=== PATIENT | male | born 1935 | race Two or more races ===

== ENCOUNTER 2023-05-31 09:11 | Outpatient (CLI) | payer OTHER | END 2023-05-31 09:12 | disposition home or self-care (01) | LOC: LAB 09:11 | DX: D64.9 Anemia, unspecified (principal); E78.5 Hyperlipidemia, unspecified; E79.0 Hyperuricemia without signs of inflammatory arthritis and tophaceous disease; R80.9 Proteinuria, unspecified ==

== ENCOUNTER 2024-10-02 09:49 | Inpatient (IN) | payer OTHER ==
[~2024-10-02] VITALS: Ht 167.6 cm; Wt 72.6 kg
[~2024-10-02 09:49] MED LIST: ADULT LOW DOSE81 M1; ARICEPT10 MG; CRESTOR20 MG; NAMENDA10 MG; NORVASC10 MG
--- NOTE | 2024-10-02 09:55 | NUR ---
SE RECIBE PTE ALERTA Y ORIENTADO EN LUGAR Y NOMBRE EN AMBULANCIA REFIERE HEMATURIA QUE DESCONOCE DESDE CUANDO. SE REALIZAN VITALES Y SE DOCUMENTAN EN SISTEMA.
[2024-10-02] MEDS ORDERED: CEFTRIAXONE SODIUM 1,000 MG VIAL IV ONE (10:15)
[2024-10-02] MEDS ORDERED: TAMSULOSIN HCL 0.4 MG CAP PO ONE (10:15)
--- NOTE | 2024-10-02 10:27 | NUR ---
[email or web address] ORIENTA A PTE SOBRE TX MEDICO ORDENAO POR . REALIZA WALT DE MUESTRAS DE LAB [facility] ORDEN MEDICA Y BAJO MEDIDAS ASEPTICAS. VENOPUNCION PATENTE BAJANDO IV FLUIDS POR REGULADOR. SE NOTIFICAN ESTUDIOS ORDENADOS.
[2024-10-02 10:33] LABS: URINE APPEARANCE Turbid; URINE BACTERIA 1261.3 uL (0.0-1933); URINE BILIRRUBIN Large (NEGATIVE); URINE BLOOD Small; URINE COLOR Red; URINE EPITHELIAL CELLS 66.9 uL (0.0-38.8); URINE KETONE 15 (NEGATIVE); URINE LEUKOCYTE Large; URINE NITRATE Positive; URINE UROBILINOGEN 0.2 E.U./dl; URINE WBC 342.7 uL (0.0-23.2)
[2024-10-02 10:42] LABS: HEMATOCRIT 46.9 % (39.0-48.0); MEAN CELL VOLUME 91.2 fL (80.0-100.00); MEAN CORPUSCULAR HEMOGLOBIN 31.1 pg (27.00-32.0); MEAN CORPUSCULAR HGB CONC 34.1 g/dl (32.0-36.0); PLATELET COUNT 279 K/uL (150-450); RED BLOOD COUNT 5.14 M/uL (4.00-6.00); RED CELL DISTRIBUTION WIDTH 15.5 % (11.5-14.5)
[2024-10-02 11:14] LABS: PH,URINE 6.5 (5.0-8.0); URINE GLUCOSE 500 MG/DL (NEGATIVE); URINE PROTEIN 100 (NEGATIVE); URINE RBC > 10558.9 uL (0.0-20.8)
[2024-10-02 11:39] LABS: INR 1.09; PARTIAL THROMBOPLASTIN TIME 29.3 SECONDS (22.0-34.0); PROTHROMBIN TIME 11.8 SECONDS (9.0-11.5)
[2024-10-02 11:49] LABS: ALBUMIN 3.5 gm/dL (3.4-5.0); BILIRUBIN TOTAL 1.01 mg/dL (0.3-1.2); CALCIUM 9.1 mg/dL (8.5-10.1); CREATININE SERUM 1.83 mg/dL (0.70-1.30); GFR 35.27; POTASSIUM 4.71 mEq/L (3.5-5.1); TOTAL PROTEIN 7.5 gm/dL (6.4-8.2)
--- NOTE | 2024-10-02 15:31 | NUR ---
SE RECIBE PACIENTE DE TURNO ANTERIOR ALERTA Y ORIENTADO EN LORETA LUDA ESFERAS, UBICADO EN RANDY A NIVEL MAS BAJO Y CON BARANDAS ELEVADAS. SE OBSERVA CON BUEN PATRON RESPIRATORIO Y PIEL TIBIA AL TACTO. CANALIZACION PATENTE,YOU DE EDEMA O ERITEMA. PENDIENTE LECTURA DE CT.
[2024-10-02 16:57] LABS: HEMATOCRIT 47.3 % (39.0-48.0); HEMOGLOBIN 15.7 g/dL (13-16.00); MEAN CELL VOLUME 92.5 fL (80.0-100.00); MEAN CORPUSCULAR HEMOGLOBIN 30.6 pg (27.00-32.0); MEAN CORPUSCULAR HGB CONC 33.1 g/dl (32.0-36.0); PLATELET COUNT 277 K/uL (150-450); RED BLOOD COUNT 5.12 M/uL (4.00-6.00); RED CELL DISTRIBUTION WIDTH 15.4 % (11.5-14.5)
[2024-10-02] MEDS ORDERED: DEXTROSE 50 % IN WATER 0.5 G/ML DISP.SYRIN IV PRN (19:30)
[2024-10-02] MEDS ORDERED: 0.9 % SODIUM CHLORIDE 1,000 ML IV SCH (19:30)
[2024-10-02] MEDS ORDERED: INSULIN LISPRO 1,000 UNIT/10 ML UNITS SUBCUTANEO PRN (19:30)
[2024-10-02] MEDS ORDERED: CEFTRIAXONE SODIUM 1,000 MG VIAL IV SCH (20:12)
[2024-10-02] MEDS ORDERED: ONDANSETRON HCL 4 MG in DEXTROSE 5 % IN WATER 50 ML IV PRN (20:15)
[2024-10-02] MEDS ORDERED: ACETAMINOPHEN 500 MG GEL..CAP PO PRN (20:15)
[2024-10-02] MEDS ORDERED: ENALAPRILAT DIHYDRATE 1.25 MG/ML VIAL IV PRN (20:15)
[2024-10-02] MEDS ORDERED: MORPHINE SULFATE 2 MG/ML SYRINGE IV PRN (20:15)
[2024-10-02] MEDS ORDERED: GABAPENTIN 600 MG TABLET PO SCH (20:17)
[2024-10-02] MEDS ORDERED: FAMOTIDINE/PF 20 MG in 0.9 % SODIUM CHLORIDE 8 ML IV PUSH SCH (21:00)
[2024-10-02 22:59] VITALS: BP 152/88; O2SAT 97
[2024-10-03] VITALS: BP 128/65; O2SAT 96
[2024-10-03 08:22] VITALS: BP 150/74; O2SAT 97
[2024-10-03 08:35] LABS: HEMATOCRIT 42.4 % (39.0-48.0); HEMOGLOBIN 14.5 g/dL (13-16.00); MEAN CELL VOLUME 90.5 fL (80.0-100.00); MEAN CORPUSCULAR HEMOGLOBIN 30.9 pg (27.00-32.0); MEAN CORPUSCULAR HGB CONC 34.1 g/dl (32.0-36.0); PLATELET COUNT 271 K/uL (150-450); RED BLOOD COUNT 4.69 M/uL (4.00-6.00)
[2024-10-03 08:39] LABS: INR 1.09; PARTIAL THROMBOPLASTIN TIME 29.4 SECONDS (22.0-34.0); PROTHROMBIN TIME 11.8 SECONDS (9.0-11.5)
[2024-10-03 08:47] LABS: ALBUMIN 3.3 gm/dL (3.4-5.0); BILIRUBIN TOTAL 0.94 mg/dL (0.3-1.2); BILIRUBIN,CONJUGATED 0.24 mg/dL (0.0-0.2); BILIRUBIN,UNCONJUGATED 0.7 mg/dL (0.0-0.6); CALCIUM 8.7 mg/dL (8.5-10.1); CHOL HDL RATIO 2.5 (0-5.0); CREATININE SERUM 1.48 mg/dL (0.70-1.30); GFR 45.07; GLOBULINA 3.1 G/DL (2.4-3.5); POTASSIUM 4.42 mEq/L (3.5-5.1); TOTAL PROTEIN 6.4 gm/dL (6.4-8.2)
[2024-10-03 08:48] LABS: C-REACTIVE PROTEIN 0.62 MG/DL (0.00-0.29)
[2024-10-03] MEDS ORDERED: AMLODIPINE BESYLATE 10 MG TABLET PO SCH (09:00)
[2024-10-03] MEDS ORDERED: PATIENTS OWN MEDICATION (MEDICAMENTO EN PISO) PO SCH (09:00)
[2024-10-03] MEDS ORDERED: MEMANTINE HCL 10 MG TABLET PO SCH (09:00)
[2024-10-03 09:11] LABS: ERYTHROCYTE SEDIMENTATION RATE 16 mm/hr
[2024-10-03 09:48] LABS: URINE APPEARANCE TURBID; URINE BILIRRUBIN NEGATIVE (NEGATIVE); URINE COLOR RED; URINE GLUCOSE >=100 MG/DL (NEGATIVE); URINE KETONE NEGATIVE (NEGATIVE)
[2024-10-03 09:49] LABS: PH,URINE 6.5; URINE BLOOD LARGE; URINE PROTEIN 300 (NEGATIVE)
[2024-10-03 09:50] LABS: URINE NITRATE POSITIVE; URINE RBC LOADED /HPF
[2024-10-03 09:51] LABS: URINE EPITHELIAL CELLS NONE SEEN /HPF; URINE WBC NONE SEEN /hpf
[2024-10-03 09:52] LABS: URINE LEUKOCYTE POSITIVE
[2024-10-03 09:55] LABS: URINE BACTERIA MANY
[2024-10-03 15:55] VITALS: BP 136/71; O2SAT 99
[2024-10-03] MEDS ORDERED: DONEPEZIL HCL 10 MG TABLET PO SCH (17:00)
[2024-10-04] VITALS: BP 150/79; O2SAT 96
[2024-10-04] MEDS ORDERED: SODIUM CHLORIDE 0.45 % 1,000 ML IV SCH (05:24)
[2024-10-04 07:23] LABS: HEMATOCRIT 40.2 % (39.0-48.0); HEMOGLOBIN 13.2 g/dL (13-16.00); MEAN CELL VOLUME 92.4 fL (80.0-100.00); MEAN CORPUSCULAR HEMOGLOBIN 30.4 pg (27.00-32.0); MEAN CORPUSCULAR HGB CONC 32.8 g/dl (32.0-36.0); PLATELET COUNT 266 K/uL (150-450); RED BLOOD COUNT 4.34 M/uL (4.00-6.00); RED CELL DISTRIBUTION WIDTH 15.6 % (11.5-14.5)
[2024-10-04 08:14] LABS: CALCIUM 8.8 mg/dL (8.5-10.1); CREATININE SERUM 1.63 mg/dL (0.70-1.30); GFR 40.31; POTASSIUM 4.67 mEq/L (3.5-5.1)
[2024-10-04 08:53] VITALS: BP 170/81; O2SAT 97
[2024-10-04] MEDS ORDERED: FINASTERIDE 5 MG TABLET PO SCH (09:00)
[2024-10-04 16:18] VITALS: BP 174/97; O2SAT 98
[2024-10-05 00:26] VITALS: BP 131/74; O2SAT 98
[2024-10-05 07:16] LABS: ALBUMIN 2.9 gm/dL (3.4-5.0); CALCIUM 8.4 mg/dL (8.5-10.1); CREATININE SERUM 1.59 mg/dL (0.70-1.30); GFR 41.49; PHOSPHOROUS 3.9 mg/dL (2.5-4.9); POTASSIUM 4.35 mEq/L (3.5-5.1)
[2024-10-05 08:00] VITALS: BP 153/89; O2SAT 98
[2024-10-05 16:00] VITALS: BP 145/71; O2SAT 99
[2024-10-06 01:16] VITALS: BP 138/85; O2SAT 97
[2024-10-06 10:04] VITALS: BP 119/77; O2SAT 97
[2024-10-06 16:00] VITALS: BP 120/77; O2SAT 95
[2024-10-07 01:59] VITALS: BP 155/88; O2SAT 97
[2024-10-07 09:06] VITALS: BP 163/93; O2SAT 96
[2024-10-07 16:09] VITALS: BP 129/81; O2SAT 96
[2024-10-08 00:13] VITALS: BP 132/83; O2SAT 95
[2024-10-08 06:47] LABS: HEMATOCRIT 36.3 % (39.0-48.0); HEMOGLOBIN 12.1 g/dL (13-16.00); MEAN CELL VOLUME 92.4 fL (80.0-100.00); MEAN CORPUSCULAR HEMOGLOBIN 30.8 pg (27.00-32.0); MEAN CORPUSCULAR HGB CONC 33.4 g/dl (32.0-36.0); PLATELET COUNT 255 K/uL (150-450); RED BLOOD COUNT 3.93 M/uL (4.00-6.00); RED CELL DISTRIBUTION WIDTH 15.3 % (11.5-14.5)
[2024-10-08 07:06] LABS: ALBUMIN 2.9 gm/dL (3.4-5.0); CALCIUM 8.4 mg/dL (8.5-10.1); CREATININE SERUM 1.41 mg/dL (0.70-1.30); GFR 47.66; PHOSPHOROUS 3.4 mg/dL (2.5-4.9); POTASSIUM 3.99 mEq/L (3.5-5.1)
[2024-10-08 08:30] VITALS: BP 160/85; O2SAT 97
[2024-10-08] MEDS ORDERED: GABAPENTIN 300 MG CAPSULE PO NR (13:00)
[2024-10-08 16:01] VITALS: BP 110/61; O2SAT 97
[2024-10-09] MEDS ORDERED: GABAPENTIN 300 MG CAPSULE PO SCH (09:00)
== END 2024-10-08 18:40 | DRG 683 ==
LOC: ER 09:49 → SURG 20:38
PROVIDERS: General Practice; Internal Medicine Nephrology; Urology; ADMIT Internal Medicine; ATTEND Internal Medicine
PROC: BW21YZZ Computerized Tomography (CT Scan) of Abdomen and Pelvis using Other Contrast (ICD-10-PCS; principal; 2024-10-02)
PROC: BW21YZZ Computerized Tomography (CT Scan) of Abdomen and Pelvis using Other Contrast (ICD-10-PCS; 2024-10-05)
DX: N17.9 Acute kidney failure, unspecified (principal); N39.0 Urinary tract infection, site not specified; R31.0 Gross hematuria; N40.0 Benign prostatic hyperplasia without lower urinary tract symptoms; I12.9 Hypertensive chronic kidney disease with stage 1 through stage 4 chronic kidney disease, or unspecified chronic kidney disease; N18.9 Chronic kidney disease, unspecified

== ENCOUNTER 2025-07-21 14:53 | Inpatient (IN) | payer OTHER ==
[~2025-07-21] VITALS: Ht 172.7 cm; Wt 95.3 kg
[2025-07-21] MEDS ORDERED: GABAPENTIN100 M2 PO (14:59)
[2025-07-21] MEDS ORDERED: DONEPEZIL HCL5 MG PO (14:59)
[2025-07-21] MEDS ORDERED: MEMANTINE HCL5 MG PO (14:59)
[2025-07-21] MEDS ORDERED: OPTIMAG 125125 MG PO (15:00)
[2025-07-21] MEDS ORDERED: AMLODIPINE-OLM1 EAC2 PO (15:00)
[2025-07-21 16:31] LABS: BASO % 0.4 % (0.1-1.2); EOS # 0.04 (0.04-0.54); EOS % 0.9 % (0.7-7.0); LYMPH # 0.77 (1.18-3.74); LYMPH % 16.7 % (19.3-53.1); MEAN PLATELET VOLUME 10.20 fl (9.4-12.4); MONO # 0.81 (0.24-0.82); NEUT # 2.93 (1.56-6.13); NEUT % 63.4 % (34.0-71.1); RED CELL DISTRIBUTION WIDTH 16.8 % (11.6-14.4)
[2025-07-21 16:36] LABS: MONO % 17.5 % (4.7-12.5)
[2025-07-21 16:55] LABS: INR 1.05
[2025-07-21 16:59] LABS: ALT/SGPT 68.0 U/L (12-78); AST/SGOT 40.0 U/L (15-37); BILIRUBIN TOTAL 0.65 mg/dL (0.3-1.2); BUN CREA RATIO 15.0 (7.0-25.0); CREATININE SERUM 2.03 mg/dL (0.70-1.30); GFR 31.22; GLOBULINA 3.9 G/DL (2.4-3.5); GLUCOSE FASTING 135.0 mg/dL (65-100); OSMOLALITY SERUM 286.0 MOSM/KG (275-295)
[2025-07-21 18:16] LABS: COVID-19 AG NEGATIVE (NEGATIVE)
[2025-07-21 19:53] LABS: URINE APPEARANCE Cloudy; URINE BILIRRUBIN Negative (NEGATIVE); URINE BLOOD Large; URINE COLOR Yellow; URINE KETONE Negative (NEGATIVE); URINE LEUKOCYTE Large; URINE NITRATE Negative; URINE UROBILINOGEN 0.2 E.U./dl
[2025-07-21 19:58] LABS: URINE BACTERIA 867.4 uL (0.0-1933); URINE EPITHELIAL CELLS 4.3 uL (0.0-38.8); URINE RBC 55.1 uL (0.0-20.8); URINE WBC 2024.2 uL (0.0-23.2)
[2025-07-21 20:05] LABS: URINE CAST 0.58 uL (0.0-1.40); URINE GLUCOSE >=1000 MG/DL (NEGATIVE); URINE PROTEIN 100 (NEGATIVE)
[2025-07-21] MEDS ORDERED: 0.9 % SODIUM CHLORIDE 1,000 ML IV SCH (21:30)
[2025-07-21] MEDS ORDERED: GABAPENTIN 100 MG CAPSULE PO SCH (21:34)
[2025-07-21] MEDS ORDERED: CEFTRIAXONE SODIUM 2,000 MG in 0.9 % SODIUM CHLORIDE 100 ML IV SCH (21:34)
[2025-07-21] MEDS ORDERED: ATORVASTATIN CALCIUM 40 MG TABLET PO SCH (21:40)
[2025-07-21] MEDS ORDERED: ACETAMINOPHEN 500 MG GEL..CAP PO PRN (21:45)
[2025-07-22 01:31] VITALS: BP 131/87; O2SAT 99
[2025-07-22 02:15] VITALS: BP 138/77; O2SAT 96
[2025-07-22] MEDS ORDERED: AMLODIPINE BESYLATE 5 MG TABLET PO SCH (09:00)
[2025-07-22] MEDS ORDERED: MEMANTINE HCL 10 MG TABLET PO SCH (09:00)
[2025-07-22] MEDS ORDERED: FAMOTIDINE/PF 20 MG in 0.9 % SODIUM CHLORIDE 8 ML IV PUSH SCH (09:00)
[2025-07-22 09:31] VITALS: BP 144/86; O2SAT 97
[2025-07-22] MEDS ORDERED: DONEPEZIL HCL 10 MG TABLET PO SCH (17:00)
[2025-07-22 17:14] VITALS: BP 124/76; O2SAT 97
[2025-07-23 01:19] VITALS: BP 113/61; O2SAT 94
[2025-07-23 07:19] LABS: BASO % 0.2 % (0.1-1.2); EOS # 0.02 (0.04-0.54); EOS % 0.4 % (0.7-7.0); LYMPH # 0.65 (1.18-3.74); LYMPH % 11.6 % (19.3-53.1); MEAN PLATELET VOLUME 10.90 fl (9.4-12.4); MONO # 0.98 (0.24-0.82); NEUT # 3.92 (1.56-6.13); NEUT % 69.9 % (34.0-71.1); RED CELL DISTRIBUTION WIDTH 16.6 % (11.6-14.4)
[2025-07-23 07:32] LABS: MONO % 17.5 % (4.7-12.5)
[2025-07-23 07:51] LABS: ALT/SGPT 60.0 U/L (12-78); AST/SGOT 36.0 U/L (15-37); BILIRUBIN TOTAL 0.67 mg/dL (0.3-1.2); BUN CREA RATIO 18.0 (7.0-25.0); CREATININE SERUM 1.75 mg/dL (0.70-1.30); GFR 37.05; GLOBULINA 3.8 G/DL (2.4-3.5); GLUCOSE FASTING 75.0 mg/dL (65-100); OSMOLALITY SERUM 290.0 MOSM/KG (275-295)
[2025-07-23 08:53] VITALS: BP 129/80
[2025-07-23 14:49] LABS: URINE APPEARANCE Cloudy; URINE BILIRRUBIN Negative (NEGATIVE); URINE BLOOD Large; URINE COLOR Yellow; URINE KETONE Negative (NEGATIVE); URINE LEUKOCYTE Moderate; URINE NITRATE Negative; URINE UROBILINOGEN 1.0 E.U./dl
[2025-07-23 14:52] LABS: URINE BACTERIA 315.5 uL (0.0-1933); URINE EPITHELIAL CELLS 3.0 uL (0.0-38.8); URINE RBC 1214.3 uL (0.0-20.8); URINE WBC 1704.5 uL (0.0-23.2)
[2025-07-23 15:22] LABS: URINE CAST 0.73 uL (0.0-1.40); URINE GLUCOSE >=1000 MG/DL (NEGATIVE); URINE PROTEIN 100 (NEGATIVE)
[2025-07-23 15:24] LABS: URINE YEAST FEW /hpf
[2025-07-23 17:45] VITALS: BP 151/89
[2025-07-24 01:01] VITALS: BP 135/89
[2025-07-24 09:08] VITALS: BP 149/91
[2025-07-24 17:42] VITALS: BP 152/91
[2025-07-25 00:54] VITALS: BP 144/82
[2025-07-25 06:41] LABS: ALT/SGPT 42.0 U/L (12-78); AST/SGOT 28.0 U/L (15-37); BILIRUBIN TOTAL 0.62 mg/dL (0.3-1.2); BUN CREA RATIO 15.0 (7.0-25.0); CREATININE SERUM 1.77 mg/dL (0.70-1.30); GFR 36.57; GLOBULINA 3.6 G/DL (2.4-3.5); GLUCOSE FASTING 82.0 mg/dL (65-100); OSMOLALITY SERUM 293.0 MOSM/KG (275-295)
[2025-07-25 09:26] VITALS: BP 171/71
[2025-07-25 17:42] VITALS: BP 154/87
[2025-07-25] MEDS ORDERED: ENALAPRILAT DIHYDRATE 1.25 MG/ML VIAL IV STA (21:16)
== END 2025-07-25 21:57 | disposition home or self-care (01) | DRG 690 ==
LOC: ER 14:53 → MEDI 21:54
PROVIDERS: Emergency Medicine; Internal Medicine Infectious Disease; Internal Medicine Nephrology; ADMIT Student in an Organized Health Care Education/Training Program; ATTEND Student in an Organized Health Care Education/Training Program
PROC: B246ZZZ Ultrasonography of Right and Left Heart (ICD-10-PCS; principal; 2025-07-21)
PROC: BR20ZZZ Computerized Tomography (CT Scan) of Cervical Spine (ICD-10-PCS; 2025-07-21)
PROC: B020ZZZ Computerized Tomography (CT Scan) of Brain (ICD-10-PCS; 2025-07-21)
PROC: B030ZZZ Magnetic Resonance Imaging (MRI) of Brain (ICD-10-PCS; 2025-07-21)
PROC: B345ZZZ Ultrasonography of Bilateral Common Carotid Arteries (ICD-10-PCS; 2025-07-21)
PROC: B348ZZZ Ultrasonography of Bilateral Internal Carotid Arteries (ICD-10-PCS; 2025-07-21)
DX: N39.0 Urinary tract infection, site not specified (principal); N17.9 Acute kidney failure, unspecified; G44.309 Post-traumatic headache, unspecified, not intractable; F07.81 Postconcussional syndrome; G30.8 Other Alzheimer's disease; F02.80 Dementia in other diseases classified elsewhere, unspecified severity, without behavioral disturbance, psychotic disturbance, mood disturbance, and anxiety; I12.9 Hypertensive chronic kidney disease with stage 1 through stage 4 chronic kidney disease, or unspecified chronic kidney disease; E11.22 Type 2 diabetes mellitus with diabetic chronic kidney disease; N18.30 Chronic kidney disease, stage 3 unspecified; R42 Dizziness and giddiness
CPT/HCPCS: 70551

== ENCOUNTER 2025-10-02 17:49 | Inpatient (IN) | payer OTHER ==
[~2025-10-02] VITALS: Ht 167.6 cm; Wt 97.5 kg
[~2025-10-02 17:49] MED LIST changes: +AMLODIPINE-OLM1 EAC2 PO; +DONEPEZIL HCL5 MG PO; +GABAPENTIN100 M2 PO; +MEMANTINE HCL5 MG PO; +OPTIMAG 125125 MG PO
[2025-10-02] MEDS ORDERED: OPTIMAL D31250 MCG PO (18:13)
[2025-10-02] MEDS ORDERED: TAMS0.4C PO (18:13)
[2025-10-02] MEDS ORDERED: EZALLOR SPRINKLE5 MG PO (18:13)
[2025-10-02] MEDS ORDERED: GLYXAMBI 10 MG1 EACH PO (18:13)
--- NOTE | 2025-10-02 18:14 | NUR ---
SE RECIBE PTE EN AMBULANCIA, ACOMPANADO. LIRA ACOMPANANTE REFIERE VIENE POR TOS. SE MIDEN S/V Y SE UBICA EN RANDY 10 CON BARANDAS ELEVADAS Y NIVEL MAS BAJO DE LA MISMA.
[2025-10-02] MEDS ORDERED: LEVALBUTEROL HCL 1.25 MG/3 ML SOLUTION IH ONE (18:30)
[2025-10-02] MEDS ORDERED: IPRATROPIUM BROMIDE 0.5 MG/2.5 ML AMPUL.NEB IH ONE ×2 (18:30→20:16)
[2025-10-02] MEDS ORDERED: METHYLPREDNISOLONE SOD SUCC 125 MG VIAL IV ONE (18:30)
[2025-10-02] MEDS ORDERED: METHYLPREDNISOLONE SOD SUCC 125 MG VIAL ONE (19:26)
--- NOTE | 2025-10-02 19:58 | NUR ---
SE EDUCA PTE Y FAMILIARES SOBRE TRATAMIENTO MEDICO Y ESTOS REFIEREN ENTENDER Y ACEPTAR. SE PROCEDE A COLECTAR MUESTRAS DE LABORATORIO, CANALIZAR Y ADMINISTRAR MEDICAMENTOS WILFREDO ORDEN MEDICA Y BAJO MEDIDAS ASEPTICAS.
[2025-10-02 20:10] LABS: BASO % 0.2 % (0.1-1.2); EOS # 0.05 (0.04-0.54); EOS % 0.9 % (0.7-7.0); LYMPH # 0.81 (1.18-3.74); LYMPH % 14.6 % (19.3-53.1); MEAN PLATELET VOLUME 10.30 fl (9.4-12.4); MONO # 0.85 (0.24-0.82); NEUT # 3.76 (1.56-6.13); NEUT % 68.0 % (34.0-71.1); RED CELL DISTRIBUTION WIDTH 18.3 % (11.6-14.4)
[2025-10-02] MEDS ORDERED: LEVALBUTEROL HCL 0.63 MG/3 ML SOLUTION IH ONE (20:16)
[2025-10-02 20:42] LABS: MONO % 15.4 % (4.7-12.5)
[2025-10-02 20:48] LABS: ALT/SGPT 54.0 U/L (12-78); AST/SGOT 48.0 U/L (15-37); BILIRUBIN TOTAL 0.63 mg/dL (0.3-1.2); BUN CREA RATIO 18.0 (7.0-25.0); CREATININE SERUM 2.16 mg/dL (0.70-1.30); GFR 29.06; GLOBULINA 4.8 G/DL (2.4-3.5); GLUCOSE FASTING 110.0 mg/dL (65-100); OSMOLALITY SERUM 295.0 MOSM/KG (275-295)
[2025-10-02 21:01] LABS: COVID-19 AG NEGATIVE (NEGATIVE)
[2025-10-02] MEDS ORDERED: 0.9 % SODIUM CHLORIDE 1,000 ML IV ONE (22:00)
[2025-10-02] MEDS ORDERED: SODIUM CHLORIDE 0.45 % 1,000 ML IV SCH (22:00)
[2025-10-02] MEDS ORDERED: DEXTROSE 50 % IN WATER 0.5 G/ML DISP.SYRIN IV PRN (22:00)
[2025-10-02] MEDS ORDERED: INSULIN LISPRO 1,000 UNIT/10 ML UNITS SUBCUTANEO PRN (22:00)
[2025-10-02] MEDS ORDERED: TAMSULOSIN HCL 0.4 MG CAP PO SCH (22:01)
[2025-10-02] MEDS ORDERED: CEFTRIAXONE SODIUM 2,000 MG in 0.9 % SODIUM CHLORIDE 100 ML IV SCH (22:14)
[2025-10-02] MEDS ORDERED: IPRATROPIUM/ALBUTEROL SULFATE 3 ML AMPUL.NEB IH SCH (22:14)
[2025-10-02] MEDS ORDERED: ACETAMINOPHEN 325 MG TABLET PO PRN (22:15)
[2025-10-02] MEDS ORDERED: ENOXAPARIN SODIUM 30 MG/0.3 ML SYRINGE SUBCUTANEO SCH (22:15)
[2025-10-02] MEDS ORDERED: MEMANTINE HCL 5 MG TABLET PO SCH (22:17)
[2025-10-02] MEDS ORDERED: DONEPEZIL HCL 5 MG TABLET PO SCH (22:17)
[2025-10-02] MEDS ORDERED: AMLODIPINE BESYLATE 5 MG TABLET PO SCH (22:17)
[2025-10-02] MEDS ORDERED: hydrALAZINE HCL 20 MG VIAL IV PRN (22:30)
[2025-10-03] MEDS ORDERED: TAMSULOSIN HCL 0.4 MG CAP PO ONE (01:53)
[2025-10-03] MEDS ORDERED: CEFTRIAXONE SODIUM 2,000 MG VIAL ONE (01:53)
[2025-10-03 02:00] VITALS: BP 136/78; O2SAT 100
[2025-10-03 03:22] LABS: URINE APPEARANCE Clear; URINE BILIRRUBIN Negative (NEGATIVE); URINE BLOOD Large; URINE COLOR Yellow; URINE KETONE Trace (NEGATIVE); URINE LEUKOCYTE Trace; URINE NITRATE Negative; URINE UROBILINOGEN 0.2 E.U./dl
[2025-10-03 03:26] LABS: URINE BACTERIA 43.1 uL (0.0-1933); URINE EPITHELIAL CELLS 8.4 uL (0.0-38.8); URINE RBC 688.5 uL (0.0-20.8); URINE WBC 26.3 uL (0.0-23.2)
[2025-10-03 03:36] LABS: URINE CAST 0.00 uL (0.0-1.40); URINE GLUCOSE 100 MG/DL (NEGATIVE); URINE PROTEIN 300 (NEGATIVE)
[2025-10-03 04:36] LABS: ALT/SGPT 49.0 U/L (12-78); AST/SGOT 32.0 U/L (15-37); BILIRUBIN TOTAL 0.5 mg/dL (0.3-1.2); BUN CREA RATIO 19.0 (7.0-25.0); CREATININE SERUM 2.26 mg/dL (0.70-1.30); GFR 27.58; GLOBULINA 4.6 G/DL (2.4-3.5); GLUCOSE FASTING 183.0 mg/dL (65-100); OSMOLALITY SERUM 299.0 MOSM/KG (275-295)
[2025-10-03] MEDS ORDERED: METHYLPREDNISOLONE SOD SUCC 40 MG VIAL IV SCH (13:00)
[2025-10-03] MEDS ORDERED: CEFEPIME HCL 2,000 MG VIAL IV SCH (17:21)
[2025-10-03 17:49] VITALS: BP 148/85; O2SAT 98
[2025-10-03] MEDS ORDERED: DOXYCYCLINE HYCLATE 100MG IV ONE (20:11)
[2025-10-03] MEDS ORDERED: DOXYCYCLINE HYCLATE 100MG IV SCH (21:00)
[2025-10-04 02:13] VITALS: BP 141/83; O2SAT 95
[2025-10-04 06:44] LABS: BASO % 0.1 % (0.1-1.2); EOS # 0.00 (0.04-0.54); EOS % 0.0 % (0.7-7.0); LYMPH # 0.34 (1.18-3.74); LYMPH % 3.9 % (19.3-53.1); MEAN PLATELET VOLUME 10.30 fl (9.4-12.4); MONO # 0.62 (0.24-0.82); MONO % 7.2 % (4.7-12.5); NEUT # 7.60 (1.56-6.13); NEUT % 88.0 % (34.0-71.1); RED CELL DISTRIBUTION WIDTH 17.7 % (11.6-14.4)
[2025-10-04 07:29] LABS: ALT/SGPT 42.0 U/L (12-78); AST/SGOT 24.0 U/L (15-37); BILIRUBIN TOTAL 0.32 mg/dL (0.3-1.2); BUN CREA RATIO 20.0 (7.0-25.0); CREATININE SERUM 2.31 mg/dL (0.70-1.30); GFR 26.9; GLOBULINA 4.0 G/DL (2.4-3.5); GLUCOSE FASTING 147.0 mg/dL (65-100); LDH 285.0 U/L (87-241); OSMOLALITY SERUM 303.0 MOSM/KG (275-295)
[2025-10-04 07:33] LABS: PROSTATIC SPECIFIC ANTIGEN 12.7 NG/ML (0.010-4.00)
[2025-10-04] MEDS ORDERED: DOXYCYCLINE HYCLATE 100MG IV ONE ×2 (08:22→14:21)
[2025-10-04] MEDS ORDERED: SODIUM POLYSTYRENE SULFONATE 30G/8 TSP PO ONE (10:00)
[2025-10-04 16:43] VITALS: BP 140/85; O2SAT 94
[2025-10-05 00:40] VITALS: BP 132/85; O2SAT 98
[2025-10-05 07:32] LABS: BUN CREA RATIO 22.0 (7.0-25.0); CREATININE SERUM 1.98 mg/dL (0.70-1.30); GFR 32.13; GLUCOSE FASTING 197.0 mg/dL (65-100); OSMOLALITY SERUM 309.0 MOSM/KG (275-295)
[2025-10-05 08:00] VITALS: BP 127/62; O2SAT 96
[2025-10-05] MEDS ORDERED: DOXYCYCLINE HYCLATE 100MG IV ONE ×2 (08:03→15:54)
[2025-10-05 16:51] VITALS: BP 118/77; O2SAT 98
[2025-10-06 00:33] VITALS: BP 141/88; O2SAT 95
[2025-10-06 06:33] LABS: BUN CREA RATIO 24.0 (7.0-25.0); CREATININE SERUM 1.71 mg/dL (0.70-1.30); GFR 38.06; GLUCOSE FASTING 210.0 mg/dL (65-100); OSMOLALITY SERUM 309.0 MOSM/KG (275-295)
[2025-10-06] MEDS ORDERED: DOXYCYCLINE HYCLATE 100MG IV ONE ×2 (06:45→15:35)
[2025-10-06 06:48] LABS: BASO % 0.2 % (0.1-1.2); EOS # 0.00 (0.04-0.54); EOS % 0.0 % (0.7-7.0); LYMPH # 0.30 (1.18-3.74); LYMPH % 5.8 % (19.3-53.1); MEAN PLATELET VOLUME 10.40 fl (9.4-12.4); MONO # 0.12 (0.24-0.82); MONO % 2.3 % (4.7-12.5); NEUT # 4.67 (1.56-6.13); NEUT % 89.6 % (34.0-71.1); RED CELL DISTRIBUTION WIDTH 17.6 % (11.6-14.4)
[2025-10-06 10:50] VITALS: BP 139/91; O2SAT 100
[2025-10-06 18:07] LABS: quan ag 0 IU/mL (.); quan mito 0.19 IU/mL (.); quant nil 0 IU/mL (.)
[2025-10-06 18:08] VITALS: BP 122/73; O2SAT 94
[2025-10-07 01:02] VITALS: BP 131/86; O2SAT 95
[2025-10-07] MEDS ORDERED: DOXYCYCLINE HYCLATE 100MG IV ONE ×2 (06:29→14:42)
[2025-10-07 07:47] VITALS: BP 135/89; O2SAT 95
[2025-10-07 16:00] VITALS: BP 148/89; O2SAT 9
[2025-10-08 00:30] VITALS: BP 141/72; O2SAT 96
[2025-10-08] MEDS ORDERED: DOXYCYCLINE HYCLATE 100MG IV ONE ×2 (06:19→15:10)
[2025-10-08 08:26] VITALS: BP 137/84; O2SAT 98
[2025-10-08 16:00] VITALS: BP 127/80; O2SAT 95
[2025-10-09 01:28] VITALS: BP 134/82; O2SAT 95
[2025-10-09] MEDS ORDERED: DOXYCYCLINE HYCLATE 100MG IV ONE ×2 (06:35→15:08)
[2025-10-09 08:14] VITALS: BP 138/86; O2SAT 97
[2025-10-09 16:00] VITALS: BP 128/83; O2SAT 95
[2025-10-10 00:32] VITALS: BP 147/81; O2SAT 95
[2025-10-10] MEDS ORDERED: DOXYCYCLINE HYCLATE 100MG IV ONE (06:06)
[2025-10-10 06:51] LABS: BASO % 0.5 % (0.1-1.2); EOS # 0.05 (0.04-0.54); EOS % 0.8 % (0.7-7.0); LYMPH # 0.38 (1.18-3.74); LYMPH % 5.9 % (19.3-53.1); MEAN PLATELET VOLUME 10.40 fl (9.4-12.4); MONO # 0.87 (0.24-0.82); NEUT # 4.67 (1.56-6.13); NEUT % 72.6 % (34.0-71.1); RED CELL DISTRIBUTION WIDTH 17.2 % (11.6-14.4)
[2025-10-10 07:09] LABS: ALT/SGPT 59.0 U/L (12-78); AST/SGOT 29.0 U/L (15-37); BILIRUBIN TOTAL 1.25 mg/dL (0.3-1.2); BUN CREA RATIO 26.0 (7.0-25.0); CREATININE SERUM 1.44 mg/dL (0.70-1.30); GFR 46.4; GLOBULINA 2.6 G/DL (2.4-3.5); GLUCOSE FASTING 138.0 mg/dL (65-100); OSMOLALITY SERUM 300.0 MOSM/KG (275-295)
[2025-10-10 07:49] LABS: BAND MAN 2.0 %; EOSINOPHIL MAN 2.0 %; LYMPHOCYTE MAN 15.0 %; MONO % 13.5 % (4.7-12.5); MONOCYTE MAN 3.0 %; NEUTROPHILS MAN 76.0 %
[2025-10-10 08:00] VITALS: BP 121/88; O2SAT 95
[2025-10-10 17:40] VITALS: BP 138/82; O2SAT 98
== END 2025-10-10 19:49 | disposition home or self-care (01) | DRG 202 ==
LOC: ER 17:49 → SURH 22:26 → SEC-K 22:26 → SURH 10-03 00:52
PROVIDERS: Emergency Medicine Pediatric Emergency Medicine; General Practice; Internal Medicine; Internal Medicine Infectious Disease; Internal Medicine Nephrology; ADMIT Internal Medicine; ATTEND Internal Medicine
PROC: BW24ZZZ Computerized Tomography (CT Scan) of Chest and Abdomen (ICD-10-PCS; principal; 2025-10-02)
DX: J40 Bronchitis, not specified as acute or chronic (principal); N39.0 Urinary tract infection, site not specified; N18.9 Chronic kidney disease, unspecified; R33.9 Retention of urine, unspecified; G30.9 Alzheimer's disease, unspecified; F02.80 Dementia in other diseases classified elsewhere, unspecified severity, without behavioral disturbance, psychotic disturbance, mood disturbance, and anxiety; E78.5 Hyperlipidemia, unspecified; I10 Essential (primary) hypertension

== ENCOUNTER 2025-11-11 10:29 | Inpatient (IN) | payer OTHER ==
[~2025-11-11] VITALS: Ht 167.6 cm; Wt 95.3 kg
[~2025-11-11 10:29] MED LIST changes: +EZALLOR SPRINKLE5 MG PO; +GLYXAMBI 10 MG1 EACH PO; +OPTIMAL D31250 MCG PO; +TAMS0.4C PO
--- NOTE | 2025-11-11 10:47 | NUR ---
SE RECIBE PACIENTE EL CUAL REFIERE VENIR A CAUSA DE QUE KANG PRESENTADO HEMATURIA. EL MISMO REFIERE ATENDERCE CON DR. SAMUELS
[2025-11-11] MEDS ORDERED: 0.9 % SODIUM CHLORIDE 1,000 ML IV SCH ×2 (12:15→23:45)
[2025-11-11] MEDS ORDERED: ONDANSETRON HCL 2 MG/ML VIAL IV ONE (12:15)
[2025-11-11] MEDS ORDERED: KETOROLAC TROMETHAMINE 30 MG VIAL IV ONE (12:15)
[2025-11-11] MEDS ORDERED: ONDANSETRON HCL 2 MG/ML VIAL ONE (12:48)
[2025-11-11] MEDS ORDERED: KETOROLAC TROMETHAMINE 30 MG VIAL ONE (12:48)
[2025-11-11 13:52] LABS: BASO % 0.5 % (0.1-1.2); EOS # 0.02 (0.04-0.54); EOS % 0.3 % (0.7-7.0); LYMPH # 1.63 (1.18-3.74); LYMPH % 28.2 % (19.3-53.1); MEAN PLATELET VOLUME 9.90 fl (9.4-12.4); MONO # 0.69 (0.24-0.82); MONO % 11.9 % (4.7-12.5); NEUT # 3.34 (1.56-6.13); NEUT % 57.7 % (34.0-71.1); RED CELL DISTRIBUTION WIDTH 17.8 % (11.6-14.4)
--- NOTE | 2025-11-11 13:57 | NUR ---
SE ORIENTA A PACIENTE SOBRE TX MEDICO. SE COLECTAN MUESTRAS DE LABORATORIO Y SE CANALIZA A PACIENTE BAJO MEDIDAS ASEPTICAS. SE ADMINISTRAN MEDICAMENTOS WILFREDO ORDEN MEDICA. SE ENTREGA ENVASE PARA U/A Y SE NOTIFICA CT.
[2025-11-11 14:31] LABS: INR 1.09
[2025-11-11 15:08] LABS: ALT/SGPT 91.0 U/L (12-78); AST/SGOT 72.0 U/L (15-37); BILIRUBIN TOTAL 1.16 mg/dL (0.3-1.2); BUN CREA RATIO 10.0 (7.0-25.0); CREATININE SERUM 1.45 mg/dL (0.70-1.30); GFR 45.93; GLOBULINA 3.1 G/DL (2.4-3.5); GLUCOSE FASTING 107.0 mg/dL (65-100); OSMOLALITY SERUM 286.0 MOSM/KG (275-295)
[2025-11-11 18:36] LABS: URINE APPEARANCE Turbid; URINE BILIRRUBIN Small (NEGATIVE); URINE BLOOD Small; URINE COLOR Red; URINE GLUCOSE Negative (NEGATIVE); URINE KETONE Negative (NEGATIVE); URINE LEUKOCYTE Large; URINE NITRATE Positive; URINE PROTEIN 30 (NEGATIVE); URINE UROBILINOGEN 0.2 E.U./dl
[2025-11-11 18:39] LABS: URINE BACTERIA 491.9 uL (0.0-1933); URINE CAST 1.60 uL (0.0-1.40); URINE EPITHELIAL CELLS 17.4 uL (0.0-38.8); URINE WBC 105.3 uL (0.0-23.2)
[2025-11-11 19:12] LABS: URINE MUCUS SCANT
[2025-11-11 19:13] LABS: URINE RBC > 10558.9 uL (0.0-20.8)
[2025-11-11 19:14] LABS: URINE CRYSTALS MODERATE /HPF
[2025-11-11] MEDS ORDERED: CEFTRIAXONE SODIUM 2,000 MG in 0.9 % SODIUM CHLORIDE 100 ML IV ONE (20:00)
[2025-11-11] MEDS ORDERED: CEFTRIAXONE SODIUM 2,000 MG VIAL ONE (21:22)
[2025-11-11] MEDS ORDERED: ACETAMINOPHEN 500 MG GEL..CAP PO PRN (23:45)
[2025-11-11] MEDS ORDERED: ONDANSETRON HCL 2 MG/ML VIAL IV PRN (23:45)
[2025-11-11] MEDS ORDERED: FAMOTIDINE/PF 20 MG in 0.9 % SODIUM CHLORIDE 8 ML IV PUSH SCH (23:49)
[2025-11-11] MEDS ORDERED: CIPROFLOXACIN IN 5 % DEXTROSE 200 ML IV SCH (23:50)
[2025-11-12 03:49] VITALS: BP 113/78; O2SAT 97
[2025-11-12 06:16] LABS: URINE APPEARANCE Clear; URINE BILIRRUBIN Small (NEGATIVE); URINE BLOOD Large; URINE COLOR Red; URINE GLUCOSE Negative (NEGATIVE); URINE KETONE Negative (NEGATIVE); URINE LEUKOCYTE Moderate; URINE NITRATE Negative; URINE UROBILINOGEN 0.2 E.U./dl
[2025-11-12 06:19] LABS: URINE BACTERIA 145.2 uL (0.0-1933); URINE EPITHELIAL CELLS 3.5 uL (0.0-38.8); URINE RBC 1211.9 uL (0.0-20.8); URINE WBC 70.7 uL (0.0-23.2)
[2025-11-12 06:24] LABS: URINE CAST 0.36 uL (0.0-1.40); URINE PROTEIN 300 (NEGATIVE)
[2025-11-12 07:20] LABS: BASO % 0.4 % (0.1-1.2); EOS # 0.04 (0.04-0.54); EOS % 0.7 % (0.7-7.0); LYMPH # 1.26 (1.18-3.74); LYMPH % 23.5 % (19.3-53.1); MEAN PLATELET VOLUME 10.70 fl (9.4-12.4); MONO # 0.66 (0.24-0.82); NEUT # 3.35 (1.56-6.13); NEUT % 62.4 % (34.0-71.1); RED CELL DISTRIBUTION WIDTH 17.9 % (11.6-14.4)
[2025-11-12 07:31] LABS: INR 1.18
[2025-11-12 07:36] LABS: MONO % 12.3 % (4.7-12.5)
[2025-11-12 07:37] LABS: ERYTHROCYTE SEDIMENTATION RATE 10 mm/hr (0-20)
[2025-11-12 07:56] LABS: ALT/SGPT 69.0 U/L (12-78); AST/SGOT 59.0 U/L (15-37); BILIRUBIN TOTAL 0.93 mg/dL (0.3-1.2); BUN CREA RATIO 10.0 (7.0-25.0); CREATININE SERUM 1.43 mg/dL (0.70-1.30); GFR 46.67; GLOBULINA 3.1 G/DL (2.4-3.5); GLUCOSE FASTING 107.0 mg/dL (65-100); OSMOLALITY SERUM 284.0 MOSM/KG (275-295)
[2025-11-12 08:15] LABS: BILIRUBIN,CONJUGATED 0.16 mg/dL (0.0-0.2)
[2025-11-12 09:48] VITALS: BP 135/75; O2SAT 99
[2025-11-12] MEDS ORDERED: MEMANTINE HCL 5 MG TABLET PO SCH (17:00)
[2025-11-12] MEDS ORDERED: DONEPEZIL HCL 5 MG TABLET PO SCH (17:00)
[2025-11-12 17:33] VITALS: BP 110/75; O2SAT 97
[2025-11-13 02:24] VITALS: BP 116/79; O2SAT 94
[2025-11-13] MEDS ORDERED: AMLODIPINE BESYLATE 2.5 MG TABLET PO SCH (09:00)
[2025-11-13] MEDS ORDERED: TAMSULOSIN HCL 0.4 MG CAP PO SCH (09:00)
[2025-11-13] MEDS ORDERED: FINASTERIDE 5 MG TABLET PO SCH (09:00)
[2025-11-13 09:44] VITALS: BP 138/89; O2SAT 98
[2025-11-13 18:11] VITALS: BP 126/85; O2SAT 96
[2025-11-13] MEDS ORDERED: PHENAZOPYRIDINE HCL 100 MG TABLET PO SCH (21:37)
[2025-11-14 00:59] VITALS: BP 128/88; O2SAT 96
[2025-11-14 08:10] VITALS: BP 150/87; O2SAT 95
[2025-11-14 21:20] VITALS: BP 131/81
[2025-11-15 00:41] VITALS: BP 136/85; O2SAT 97
[2025-11-15 08:04] LABS: BASO % 0.4 % (0.1-1.2); EOS # 0.07 (0.04-0.54); EOS % 1.4 % (0.7-7.0); LYMPH # 1.16 (1.18-3.74); LYMPH % 24.0 % (19.3-53.1); MEAN PLATELET VOLUME 10.30 fl (9.4-12.4); MONO # 0.76 (0.24-0.82); NEUT # 2.78 (1.56-6.13); NEUT % 57.7 % (34.0-71.1); RED CELL DISTRIBUTION WIDTH 17.6 % (11.6-14.4)
[2025-11-15 08:21] LABS: MONO % 15.7 % (4.7-12.5)
[2025-11-15 08:49] LABS: ALT/SGPT 52.0 U/L (12-78); AST/SGOT 32.0 U/L (15-37); BILIRUBIN TOTAL 1.09 mg/dL (0.3-1.2); BUN CREA RATIO 7.0 (7.0-25.0); CREATININE SERUM 1.37 mg/dL (0.70-1.30); GFR 49.04; GLOBULINA 2.7 G/DL (2.4-3.5); GLUCOSE FASTING 101.0 mg/dL (65-100); OSMOLALITY SERUM 290.0 MOSM/KG (275-295)
[2025-11-15 10:32] VITALS: BP 132/84; O2SAT 98
[2025-11-15 18:53] VITALS: BP 113/79
[2025-11-16 01:36] VITALS: BP 144/85; O2SAT 96
[2025-11-16 05:33] LABS: URINE APPEARANCE Turbid; URINE BILIRRUBIN Moderate (NEGATIVE); URINE BLOOD Moderate; URINE COLOR Red; URINE GLUCOSE Negative (NEGATIVE); URINE KETONE Negative (NEGATIVE); URINE LEUKOCYTE Moderate; URINE NITRATE Positive; URINE UROBILINOGEN 0.2 E.U./dl
[2025-11-16 05:39] LABS: URINE BACTERIA 844.2 uL (0.0-1933); URINE EPITHELIAL CELLS 2.7 uL (0.0-38.8); URINE WBC 59.6 uL (0.0-23.2)
[2025-11-16 05:47] LABS: URINE CAST 0.00 uL (0.0-1.40); URINE PROTEIN 100 (NEGATIVE); URINE RBC > 10558.9 uL (0.0-20.8)
[2025-11-16 08:44] VITALS: BP 145/82; O2SAT 93
[2025-11-16 21:43] VITALS: BP 121/88
[2025-11-17 01:39] VITALS: BP 127/84; O2SAT 99
[2025-11-17 08:37] VITALS: BP 138/89; O2SAT 97
[2025-11-17] MEDS ORDERED: CEFTRIAXONE SODIUM 2,000 MG in 0.9 % SODIUM CHLORIDE 100 ML IV SCH (09:00)
[2025-11-17 18:20] VITALS: BP 115/77; O2SAT 95
[2025-11-18 01:15] VITALS: BP 121/85; O2SAT 97
[2025-11-18 08:34] VITALS: BP 138/80; O2SAT 96
[2025-11-18 14:28] LABS: BASO % 0.3 % (0.1-1.2); EOS # 0.07 (0.04-0.54); EOS % 1.2 % (0.7-7.0); LYMPH # 1.01 (1.18-3.74); LYMPH % 17.6 % (19.3-53.1); MEAN PLATELET VOLUME 10.40 fl (9.4-12.4); MONO # 0.56 (0.24-0.82); MONO % 9.7 % (4.7-12.5); NEUT # 4.04 (1.56-6.13); NEUT % 70.3 % (34.0-71.1); RED CELL DISTRIBUTION WIDTH 17.6 % (11.6-14.4)
[2025-11-18] MEDS ORDERED: HETASTARCH IN 0.9 % NACL 500 ML PLAST..BAG IV ONE (15:42)
[2025-11-18 19:28] VITALS: BP 116/71; O2SAT 95
[2025-11-19 03:30] VITALS: BP 147/97; O2SAT 95
[2025-11-19 11:01] VITALS: BP 114/64; O2SAT 97
[2025-11-19 15:36] LABS: BASO % 0.5 % (0.1-1.2); EOS # 0.06 (0.04-0.54); EOS % 1.1 % (0.7-7.0); LYMPH # 0.89 (1.18-3.74); LYMPH % 16.1 % (19.3-53.1); MEAN PLATELET VOLUME 10.80 fl (9.4-12.4); MONO # 0.56 (0.24-0.82); MONO % 10.1 % (4.7-12.5); NEUT # 3.94 (1.56-6.13); NEUT % 71.3 % (34.0-71.1); RED CELL DISTRIBUTION WIDTH 18.2 % (11.6-14.4)
[2025-11-19 16:15] LABS: ALT/SGPT 23.0 U/L (12-78); AST/SGOT 14.0 U/L (15-37); BILIRUBIN TOTAL 0.8 mg/dL (0.3-1.2); BUN CREA RATIO 11.0 (7.0-25.0); CREATININE SERUM 1.38 mg/dL (0.70-1.30); GFR 48.63; GLOBULINA 2.5 G/DL (2.4-3.5); GLUCOSE FASTING 146.0 mg/dL (65-100); OSMOLALITY SERUM 292.0 MOSM/KG (275-295)
[2025-11-19 19:36] VITALS: BP 128/79
[2025-11-20 01:57] VITALS: BP 137/81; O2SAT 95
[2025-11-20 09:33] VITALS: BP 128/88; O2SAT 98
[2025-11-20 19:40] VITALS: BP 127/83
[2025-11-21 02:24] VITALS: BP 120/76; O2SAT 96
[2025-11-21] MEDS ORDERED: CIPRO500 MG PO (13:42)
== END 2025-11-21 14:40 | disposition home or self-care (01) | DRG 669 ==
LOC: ER 10:29 → MEDJ 11-12 00:55
PROVIDERS: General Practice; Internal Medicine; Internal Medicine Infectious Disease; ADMIT Urology; ATTEND Urology
PROC: BW21ZZZ Computerized Tomography (CT Scan) of Abdomen and Pelvis (ICD-10-PCS; 2025-11-11)
PROC: 0T9B70Z Drainage of Bladder with Drainage Device, Via Natural or Artificial Opening (ICD-10-PCS; 2025-11-12)
PROC: 0T2BX0Z Change Drainage Device in Bladder, External Approach (ICD-10-PCS; 2025-11-17)
PROC: 0TBB8ZZ Excision of Bladder, Via Natural or Artificial Opening Endoscopic (ICD-10-PCS; principal; 2025-11-18 14:00)
DX: C67.9 Malignant neoplasm of bladder, unspecified (principal); N41.0 Acute prostatitis; R31.0 Gross hematuria; N40.1 Benign prostatic hyperplasia with lower urinary tract symptoms; R33.8 Other retention of urine; I86.2 Pelvic varices; E11.9 Type 2 diabetes mellitus without complications; I10 Essential (primary) hypertension; Z79.84 Long term (current) use of oral hypoglycemic drugs